=== PATIENT | female | born 1940 | race African-American/Black ===

== ENCOUNTER 2017-04-04 20:18 | Emergency (ER) | payer MEDICARE, MEDICAID, OTHER ==
[2017-04-04] MEDS ORDERED: Ondansetron HCl/PF 4 MG/2 ML Vial ONE (20:50)
[2017-04-04] MEDS ORDERED: Ketorolac Tromethamine 30 MG/ML VIAL ONE (20:50)
--- NOTE | 2017-04-04 21:58 | RAD ---
EXAM: ONE VIEW PELVIS 04/04/17 HISTORY: Left hip pain. COMPARISON: None. FINDINGS: There is dislocation of a left hip prosthesis. No obvious fractures. IMPRESSION: Dislocation left hip prosthesis. POS: [id number]
== END 2017-04-05 03:12 | disposition short-term general hospital (02) ==
LOC: MADERS 20:18
DX: T84.021A Dislocation of internal left hip prosthesis, initial encounter (principal); Z79.899 Other long term (current) drug therapy; I10 Essential (primary) hypertension; Z86.73 Personal history of transient ischemic attack (TIA), and cerebral infarction without residual deficits; G20 Parkinson's disease; F02.80 Dementia in other diseases classified elsewhere, unspecified severity, without behavioral disturbance, psychotic disturbance, mood disturbance, and anxiety; X50.1XXA Overexertion from prolonged static or awkward postures, initial encounter
CPT/HCPCS: 72170; 96374; 96375; J1885; J2270; J2405

== ENCOUNTER 2017-05-06 10:53 | Outpatient (CLI) | payer MEDICAID, MEDICARE ==
[2017-05-06 11:19] LABS: #Basophils 0.1 thou/uL (0.0-0.2); #Eosinphils 0.2 thou/uL (0.0-0.7); #Lymphocytes 2.1 thou/uL (1.20-3.40); #Monocytes 0.3 thou/uL (0.11-0.59); #Neutrophils 5.3 thou/uL (1.40-6.50); %Basophils 0.9 % (0.0-1.0); %Lymphocytes 26.2 % (21.0-51.0); %Monocytes 3.6 % (0.0-10.0); %Neutrophils 67.2 % (42.0-75.0); Hemoglobin 11.1 g/dL (12.0-16.0); Mean Corpuscular Hemoglobin 29.1 pg (27.0-31.0); Mean Corpuscular Volume 91.1 fl (81.0-99.0); Mean Platelet Volume 8.6 fL (7.4-10.4); Platelet Count 196 thou/uL (130-400); RBC Distribution Width 15.7 % (11.5-14.5); White Blood Cell (WBC) Count 7.9 thou/uL (4.8-10.8)
[2017-05-06 11:24] LABS: Hemoglobin A1c 5.1 % (4.0-6.0)
[2017-05-06 11:34] LABS: ALT (SGPT) 10 U/L (8-55); AST (SGOT) 14 U/L (5-34); Albumin 3.9 g/dL (3.4-4.8); Alkaline Phosphatase 65 U/L (40-150); Anion Gap 12 mmol/L (10-20); BUN (Urea Nitrogen) 15 mg/dL (9.8-20.1); Bilirubin, Total 0.3 mg/dL (0.2-1.2); Calc. Creatinine Clearance 0 mL/min (70-130); Calcium 9.9 mg/dL (7.8-10.44); Carbon Dioxide 23 mmol/L (23-31); Chloride 110 mmol/L (98-107); Estimated GFR-MDRD 79; Globulin 3.1 g/dL (2.4-3.5); Glucose 84 mg/dL (83-110); Sodium 141 mmol/L (136-145)
== END 2017-05-06 10:54 | disposition home or self-care (01) ==
LOC: MADLABBHPM 10:53
PROVIDERS: ATTEND Family Medicine
DX: R62.7 Adult failure to thrive (principal)
CPT/HCPCS: 36415; 80053; 83036; 84443; 85025

== ENCOUNTER 2017-06-09 18:26 | Outpatient (CLI) | payer MEDICARE ==
[2017-06-09 18:35] LABS: Clarity Cloudy (Clear); Leukocyte Small (Negative); Specific Gravity, Urine 1.015 (1.005-1.030)
[2017-06-09 18:36] LABS: Bacteria/HPF 4+ HPF (None Seen); Bilirubin Negative (Negative); Blood, Urine Negative (Negative); Glucose, Urine (Dipstick) Negative (Negative); Nitrite Positive (Negative); Protein, Urine (Dipstick) Trace mg/dL (Neg-Trace); RBC/HPF 0-3 HPF (0-3); Urobilinogen 0.2 mg/dL (0.2-1.0)
== END 2017-06-09 18:27 | disposition home or self-care (01) ==
LOC: MADLAB 18:26
PROVIDERS: ATTEND Family Medicine
DX: R62.7 Adult failure to thrive (principal)
CPT/HCPCS: 81001